=== PATIENT | female | born 1980 | race Caucasian/White ===

== ENCOUNTER 2022-05-16 17:27 | Emergency (ER) | payer OTHER, SELFPAY ==
[2022-05-16] VITALS (12 sets, daily range): BP systolic 107–116; BP diastolic 70–81; PULSE 75–97; RESP 16–18; TEMP 37.7; O2SAT 94–98; BMI 30.9
[2022-05-16 17:55] LABS: Appearance Urine Clear (Clear); Bilirubin Urine Negative (Negative); Blood Urine Negative (Negative); Color Urine Yellow (Yellow); Glucose Urine Negative (Negative); Ketones Urine Negative (Negative); Leukocyte Esterase Urine Negative (Negative); Nitrite Urine Negative (Negative); Protein Urine Negative (Negative); Specific Gravity Urine 1.025 (1.000-1.030); Urobilinogen Urine 0.2 (0.2-1.0); pH Urine 6.5 (5.0-8.5)
--- NOTE | 2022-05-16 18:00 | CRLHL7_ITS ---
For Patients: As a result of the Cures Act, medical imaging exams and procedure reports are released immediately into your electronic medical record. You may view this report before your referring provider. If you have questions, please contact your health care provider. HISTORY: Right lower quadrant pain. History of hysterectomy. TECHNIQUE: CT abdomen and pelvis without IV contrast. 72 mL Isovue 370 IV. COMPARISON: None. FINDINGS: Abdomen: Few 1 cm cysts in the liver. Mild central intrahepatic bile duct dilation. No extrahepatic bile duct dilation. Pancreas is unremarkable. 1.4 cm hypodense lesion in the superior aspect the spleen measures slightly above water density. There is an adjacent subcentimeter hypodense lesion in the superior aspect of the spleen. No adrenal nodules. Kidneys enhance symmetrically. Subcentimeter hypodense lesion in the lower pole the right kidney is too small to characterize but is likely a cyst. No hydronephrosis. No dilated bowel. Colonic diverticulosis. Appendix is unremarkable. No free fluid. No lymphadenopathy. Abdominal aorta is normal caliber. Pelvis: No lymphadenopathy. Musculoskeletal: Convex right curvature of the thoracolumbar spine. Lower chest: Unremarkable. IMPRESSION: 1. Mild intrahepatic bile duct dilatation without extrahepatic bile duct dilation. Correlate with clinical and laboratory findings of biliary obstruction. 2. 1.4 cm and subcentimeter indeterminate hypodense lesions in the spleen. In the absence of a history of malignancy recommend follow-up contrast enhanced CT in 6 months. If there is a history of malignancy metastases should be considered. 3. Colonic diverticulosis. Please note that all CT scans at this facility use dose modulation, iterative reconstruction, and/or weight-based dosing when appropriate to reduce radiation dose to as low as reasonably achievable. Dictated by Jakob Tavera MD @ 05/16/2022 7:46:02 PM (Electronically Signed)
--- NOTE | 2022-05-16 18:02 | ED.ABDPAIN ---
HPI - Abdominal Pain General Chief Complaint: Abdominal Pain Stated Complaint: sharp pain in lower l. ab Time Seen by Provider: 05/16/22 17:37 History of Present Illness HPI narrative: This 41-year-old female comes in reporting pain in the right lower quadrant that began about 3 hours or 4 hours prior to arrival. She states that it is a constant pain and has been worsening since it started. The pain is worse when there is movement and when going over the bumps in the car ride here. She does not report any nausea, vomiting, fever, or dysuria. She does arrive with a temperature at 99.8?. She is otherwise in good health. She states that she did have a gallbladder attack about a year ago and there was a stone with some sludge in her gallbladder. She did not have her gallbladder removed and has not had any subsequent symptoms. She states that this pain is quite different from what she had a year ago. Related Data Home Medications Medication Instructions Recorded Confirmed sertraline 50 mg tablet (Zoloft) 50 mg PO DAILY 05/16/22 05/16/22 Previous Rx's Medication Instructions Recorded ketorolac 10 mg tablet 10 mg PO Q8H 5 days #15 tabs 05/16/22 ondansetron HCl 4 mg tablet 4 mg PO Q6H #10 tabs 05/16/22 Allergies Allergy/AdvReac Type Severity Reaction Status Date / Time No Known Drug Allergies Allergy Verified 05/16/22 17:43 Review of Systems Status of ROS Reports: 10 or more systems reviewed and unremarkable except as noted in History and below Narrative Constitutional: No fevers, no weight gain or loss. Eyes: No discharge. No vision changes. HENT: No congestion, no sore throat, no ear pain. Cardiovascular: No chest pain, no palpitations. Respiratory: No shortness of breath, no wheezes, no cough. Gastrointestinal: No vomiting, no diarrhea. Abdominal pain as described above. Genitourinary: No dysuria, no hematuria. Musculoskeletal: Normal range of motion. Skin: No rashes, no pruritis. Neurological: No dizziness, weakness, sensory change, speech change. Endo/Heme/Allergies: No bruising or bleeding. No polydipsia. Pysch: no suicidality, no anxiety, no insomnia. All other systems reviewed and are negative. PFSH PFSH Social History Smoking Status: Never smoker How often do you have a drink containing alcohol: 2-4 times a month AUDIT-C Alcohol total score: 2 Non-prescribed substance use: denies use Exam Narrative: Exam Narrative: Constitutional: Well-developed, well-nourished, no acute distress. HEENT: Normocephalic, atraumatic. Neck: Normal range of motion. Nontender. Supple. Heart: Regular. No murmurs. Normal rate. Intact distal pulses. Lungs: Clear to auscultation. No chest discomfort. No wheezes, rhonchi, or rales. Abdomen: Decreased bowel sounds. Tenderness in the right lower quadrant at McBurney's point. No obvious rebound tenderness. Genitalia: Deferred. Back: No midline tenderness. Normal range of motion. Extremities: Normal range of motion. No injury. Skin: Intact. No rash. Warm. No erythema or pallor. Neurologic: No altered sensation. No weakness. Alert and oriented. Psychiatric: No suicidality. No anxiety or depression. No insomnia. Nursing notes and vitals signs are reviewed. Const: Vital Signs, click to edit/add: Vital Signs - 24 hr 05/16/22 17:38 05/16/22 18:26 05/16/22 18:31 Temperature 99.8 F H Pulse Rate Pulse Rate [Right Pulse Oximeter] 92 90 97 Respiratory Rate 16 18 16 Blood Pressure Blood Pressure [Ri ght Upper Arm] 111/74 111/70 Pulse Oximetry 97 98 98 Oxygen Delivery Me thod Room Air Room Air Room Air 05/16/22 18:42 05/16/22 18:43 Temperature Pulse Rate 82 79 Pulse Rate [Right Pulse Oximeter] Respiratory Rate Blood Pressure 114/81 Blood Pressure [Ri ght Upper Arm] Pulse Oximetry 95 94 Oxygen Delivery Me thod Course Vital Signs Vital signs: Initial Vital Signs Temperature 99.8 F H 05/16/22 17:38 Temperature Source Temporal Artery Scan 05/16/22 17:38 Pulse Rate 92 05/16/22 17:38 Respiratory Rate 16 05/16/22 17:38 Blood Pressure 111/74 05/16/22 17:38 Blood Pressure Mean 86 05/16/22 17:38 Blood Pressure Position Sitting 05/16/22 17:38 Pulse Oximetry 97 05/16/22 17:38 Oxygen Delivery Method 05/16/22 17:38 Vital Signs Temperature 99.8 F H 05/16/22 17:38 Pulse Rate 92 05/16/22 17:38 Respiratory Rate 16 05/16/22 17:38 Blood Pressure 111/74 05/16/22 17:38 Pulse Oximetry 97 05/16/22 17:38 Oxygen Delivery Method 05/16/22 17:38 Temperature 99.8 F H 05/16/22 17:38 Pulse Rate 79 05/16/22 18:43 Respiratory Rate 16 05/16/22 18:31 Blood Pressure 114/81 05/16/22 18:42 Pulse Oximetry 94 05/16/22 18:43 Oxygen Delivery Method 05/16/22 18:31 MDM - Abdominal Pain MDM Narrative Medical decision making narrative: This patient comes in with abdominal pain. She states that it is a constant pain. She was displaying enough symptoms were it seemed proper to do a CT scan with IV contrast. This was obtained and returns with no obvious findings to explain her pain. There are few cysts in her liver and 1 in the spleen and there is some mild dilation of the common bile duct. The patient does state that she has an abnormal gallbladder but has not had any recurrent symptoms related to this. Her lab results today returned with normal findings. Her white count is normal and her liver enzymes and bilirubin also returned in normal range. The patient received an IV dose of Dilaudid 0.5 mg and Zofran 4 mg and this brought sufficient relief to her symptoms. She is okay to be discharged home and received prescriptions for Zofran and Toradol. I describe signs and symptoms that would indicate a need for return and re-evaluation. Lab Data Labs: Lab Results 05/16/22 05/16/22 05/16/22 Range/Units 17:50 18:10 18:10 WBC 9.62 (4.50-11.00) K/uL RBC 5.10 (4.00-5.20) m/uL Hgb 14.7 (12.0-16.0) gm/dL Hct 44.2 (33.0-51.0) % MCV 87 (80-100) fL MCH 29 (26-34) pg MCHC 33 (32-36) gm/dL RDW Coeff of Girish 13.1 (11.5-15.5) % Plt Count 341 (140-440) K/uL Neut % (Auto) 67.4 (42.0-72.0) % Lymph % (Auto) 19.2 L (20-44) % [place] % (Auto) 11.2 H (0.0-11.0) % Eos % (Auto) 1.7 (0.0-7.0) % Baso % (Auto) 0.3 (0.0-3.0) % Neut # (Auto) 6.48 (1.7-7.0) K/uL Lymph # (Auto) 1.80 (0.90-2.90) K/uL [place] # (Auto) 1.10 H (0.00-0.90) K/UL Eos # (Auto) 0.16 (0.00-0.50) K/uL Baso # (Auto) 0.03 (0.00-0.30) K/uL Sodium 139 (135-149) mmol/L Potassium 4.0 (3.6-5.1) mmol/L Chloride 107 (96-114) mmol/L Carbon Dioxide 27 (20-32) mmol/L BUN 20 (5-24) mg/dL Creatinine 0.5 (0.5-1.5) mg/dL Estimated Creat Clear 160.09 Estimated GFR 122 ml/min Glucose 93 (60-115) mg/dL Calcium 9.2 (8.4-10.6) mg/dL Total Bilirubin 0.4 (0.1-1.5) mg/dL Direct Bilirubin 0.2 (0.0-0.5) mg/dL AST 19 (12-35) U/L ALT 19 (4-35) U/L Alkaline Phosphatase 72 (40-150) U/L Total Protein 7.5 (6.0-8.3) g/dL Albumin 4.2 (3.3-5.0) g/dL Urine Color Yellow (Yellow) Urine Appearance Clear (Clear) Urine pH 6.5 (5.0-8.5) Ur Specific Dubois 1.025 (1.000-1.030) Urine Protein Negative (Negative) Urine Glucose (UA) Negative (Negative) Urine Ketones Negative (Negative) Urine Blood Negative (Negative) Urine Nitrite Negative (Negative) Urine Bilirubin Negative (Negative) Urine Urobilinogen 0.2 (0.2-1.0) Ur Leukocyte Esterase Negative (Negative) Urine RBC 0-2 (0-2) Urine WBC 0-2 (0-5) Ur Squamous Epith Cells Few (None-Few) Urine Bacteria None (None) Imaging Data CT scan - abdomen: Radiologist's impression: 1. Mild intrahepatic bile duct dilatation without extrahepatic bile duct dilation. Correlate with clinical and laboratory findings of biliary obstruction. 2. 1.4 cm and subcentimeter indeterminate hypodense lesions in the spleen. In the absence of a history of malignancy recommend follow-up contrast enhanced CT in 6 months. If there is a history of malignancy metastases should be considered. 3. Colonic diverticulosis. Discharge Plan Discharge Clinical Impression: Gastroenteritis Patient Disposition: Home, Self-Care Condition: Improved Additional Instructions: Take medication as needed and indicated. Follow up with MD or return if worsening. Prescriptions: New ondansetron HCl 4 mg tablet 4 mg PO Q6H Qty: 10 0RF ketorolac 10 mg tablet 10 mg PO Q8H 5 Days Qty: 15 0RF No Action sertraline [Zoloft] 50 mg tablet 50 mg PO DAILY Follow Up/Referrals: Provider,Not a Local [Primary Care Provider] - Stand Alone Forms: [facility] Info Instructions
[2022-05-16] MEDS: ONDANSETRON 2 MG/ML inj 4 MG IVP (18:15)
[2022-05-16] MEDS: HYDROmorphone 0.5 mg/0.5 ml inj IVP (18:15)
[2022-05-16 18:16] LABS: Basophils Percent Auto 0.3 % (0.0-3.0); Eosinophils Percent Auto 1.7 % (0.0-7.0); Hematocrit 44.2 % (33.0-51.0); Hemoglobin* 14.7 gm/dL (12.0-16.0); Immature Granulocytes Pct Auto 0.2 %; Lymphocytes Percent Auto 19.2 % (20-44); Mean Corpuscular HGB Conc 33 gm/dL (32-36); Mean Corpuscular Hemoglobin 29 pg (26-34); Mean Corpuscular Volume 87 fL (80-100); Monocytes Percent Auto 11.2 % (0.0-11.0); Neutrophils Percent Auto 67.4 % (42.0-72.0); Platelet Count* 341 K/uL (140-440); RDW Coefficient of Variation % 13.1 % (11.5-15.5); White Blood Count* 9.62 K/uL (4.50-11.00)
[2022-05-16 18:16] LABS: RBC Urine 0-2 (0-2); Squamous Epithelial Cell Urine Few (None-Few); WBC Urine 0-2 (0-5)
[2022-05-16 18:17] LABS: Basophils Absolute Auto 0.03 K/uL (0.00-0.30); Eosinophils Absolute Auto 0.16 K/uL (0.00-0.50); Immature Granulocytes Abs Auto 0.02 K/uL (0.00-0.30); Neutrophils Absolute Auto 6.48 K/uL (1.7-7.0)
[2022-05-16 18:24] LABS: Slide Review Reflex No
[2022-05-16 18:28] LABS: Chloride* 107 mmol/L (96-114)
[2022-05-16 18:29] LABS: Albumin* 4.2 g/dL (3.3-5.0); Sodium* 139 mmol/L (135-149)
[2022-05-16 18:32] LABS: Alanine Aminotransferase* 19 U/L (4-35); Alkaline Phosphatase* 72 U/L (40-150); Aspartate Amino Transferase* 19 U/L (12-35); Bilirubin Direct* 0.2 mg/dL (0.0-0.5); Bilirubin Total* 0.4 mg/dL (0.1-1.5); Blood Urea Nitrogen* 20 mg/dL (5-24); Calcium* 9.2 mg/dL (8.4-10.6); Carbon Dioxide* 27 mmol/L (20-32); Creatinine* 0.5 mg/dL (0.5-1.5); Est. Creatinine Clearance* 160.09; Estimated Glomerular Filt Rate 122 ml/min; Glucose* 93 mg/dL (60-115); Total Protein* 7.5 g/dL (6.0-8.3)
--- OUTSIDE RECORDS SUMMARY | 2022-05-16 19:02 | XMS_ITS ---
:1980 Author Name Janessa Haskins Care Team Providers Name Role Phone Janessa Haskins Unavailable Unavailable PROBLEMS Type Condition ICD9-CM Code [id number] Code Onset Condition SNO MED Code Dates Status Problem Menopausal and N95.1 Active female climacteric states Problem H/O vitamin D Z86.39 Active 075159 06 deficiency Problem Chronic fatigue R53.82 Active 5270 2003 Problem Female climacteric N95.1 Active 1 20118657 state Problem Premenopausal N95.9 Active 901346 000 patient Problem Vitamin D E55.9 Active 20351924 deficiency ALLERGIES No Known Allergies ENCOUNTERS Encounter Location Date Diagnosis [facility] [address] [place], [place] and female [place], [place] climacteric sta yulia N95.1 ; [address] Fatigue R53.83 ; Premenopausal pa tient N95.9 and Vitami n D deficiency E55.9 [facility] [address] [place], [place] [address] [facility] [address] Mar, Fatigue R53 .83 ; [place], [place] Menopausal and f emale [address] climacteric stat es N95.1 and H/O vitamin D deficiency Z86.3 9 [facility] [address] Mar, [place] [address] [facility] [address] [place], [place] [address] [facility] [address], [place] [address] [facility] [address] Mar, [place] [address] [facility] [address] Feb, [place] [address] [facility] [address] Feb, Premeno pausal patient [place], [place] N95.9 ; Vitamin D [address] deficiency E55.9 and Chronic fatigue R53.82 [facility] [address] Jan, Menopausal and female [place], [place] climacteric stat es N95.1 [address] [facility] [address] Dec, Premeno pausal patient [place], [place] N95.9 ; Vitamin D [address] deficiency E55.9 and Chronic fatigue R53.82 [facility] [address] Dec, [place], [place] [id number] [facility] [address] Nov, [place], [place] [id number] [facility] [address] Nov, Premeno pausal patient [place], [place] N95.9 ; Female climacteric [address] N95.1 ; Vitamin D deficiency E55.9 and Breast cancer sc reening by mammogram Z12.31 [facility] [address] Nov, Fatigue R53 .83 ; [place], [place] Menopausal and f emale [address] climacteric stat es N95.1 ; Thyroid disorder screen Z13.29 and Encou nter for special screenin g examination for nutritional diso rder Z13.21 [facility] [address] Nov, [place] [address] [facility] [address] Nov, Female climacteric state [place], [place] N95.1 ; [place] [address] patient N95.9 an d Chronic fatigue R53.82 IMMUNIZATIONS No Known Immunizations SOCIAL HISTORY Qualifiers Date Never Smoker REASON FOR REFERRAL Reason Marilyn Castro (Mammo) Schedu led 12/29 Referral Organization [facility] Referring Provider First Name Luca Referring Provider Last Name Philipbari Referring Provider Specialty Nurse Practitioner Referring Provider Referring Provider email [email or web address] Referred Provider Specialty Mammography Screening Cent er Referral Appointment Date 2021-12-29 FUNCTIONAL STATUS PLAN OF CARE Activity Details Follow Up 3 Months Reason: Future Appointment Provider Name:Luca Haynes, 2022-06-22 08:30:00 AM, [address] [employer], [place], [address], Future Appointment Provider Name:Luca Haynes, 2022-06-30 08:30:00 AM, [address] [employer], [place], [address], Referral 2021-12-29, Marilyn Castro (Sara ammo) Scheduled 12/29 Pending Test VITAMIN D,25-OH,TOTAL,IA VITAL SIGNS Height 58 in 2022-03-25 Weight 159.6 lbs 2022-03-25 BMI 33.35 kg/m2 2022-03-25 Blood pressure systolic 122 mm Hg 2022-03-25 Blood pressure diastolic 70 mm Hg 2022-03-25 MEDICATIONS Medication Instructions Dosage Frequency Start Date End Date Duration S tatus Zoloft Active Vitamin D3 50,000 Orally weekly 1 capsule Nov, day s Active 2021 Estrogen Pellets Active Testosterone Active Pellets PROCEDURES Procedure Date Ordered Result Body Site Self pay no charge visit Mar 25, 2022 GONADOTROPIN (FSH) Mar 16, 2022 ASSAY OF PROLACTIN Dec 02, 2021 BRIEF EMOTIONAL/BEHAV ASSMT Dec 02, 2021 ASSAY OF SEX HORMONE GLOBUL Dec 02, 2021 VITAMIN B-12 Dec 02, 2021 ASSAY OF TOTAL TESTOSTERONE Dec 02, 2021 Self pay no charge visit Dec 30, 2021 ASSAY OF TOTAL TESTOSTERONE Mar 18, 2022 DEHYDROEPIANDROSTERONE Dec 02, 2021 ASSAY OF TOTAL TESTOSTERONE Jan 27, 2022 ASSAY OF TOTAL TESTOSTERONE Mar 16, 2022 ASSAY OF ESTRADIOL Dec 02, 2021 ASSAY OF ESTRADIOL Mar 16, 2022 GONADOTROPIN (FSH) Mar 18, 2022 GONADOTROPIN (FSH) Dec 02, 2021 ASSAY OF ESTRADIOL Mar 18, 2022 ASSAY OF VITAMIN D Dec 02, 2021 GONADOTROPIN (LH) Dec 02, 2021 ASSAY OF VITAMIN D Mar 16, 2022 ASSAY OF VITAMIN D Mar 18, 2022 ASSAY OF TESTOSTERONE Dec 02, 2021 ASSAY THYROID STIM HORMONE Dec 02, 2021 TOTAL CORTISOL Dec 02, 2021 RESULTS Name Result Date Reference Range ESTRADIOL 2022-03-18 ESTRADIOL 47 FSH 2022-03-18 FSH 5.2 TESTOSTERONE, TOTAL, LC/MS/MS 2022-03-18 TESTOSTERONE, TOTAL, MS 134 2-45 TESTOSTERONE, TOTAL, LC/MS/MS 2022-01-27 TESTOSTERONE, TOTAL, MS 229 2-45 ESTRADIOL 2021-12-02 ESTRADIOL 102 DHEA SULFATE 2021-12-02 DHEA SULFATE 86 19-237 VITAMIN B12 2021-12-02 VITAMIN B12 812 060-3479 FSH 2021-12-02 FSH 5.1 LH 2021-12-02 LH 3.5 PROLACTIN 2021-12-02 PROLACTIN 5.4 CORTISOL, TOTAL 2021-12-02 CORTISOL, TOTAL 13.4 TSH 2021-12-02 TSH 1.98 VITAMIN D,25-OH,TOTAL,IA 2021-12-02 VITAMIN D,25-OH,TOTAL,IA 20 30-100 SEX HORMONE BINDING GLOBULIN 2021-12-02 SEX HORMONE BINDING GLOBULIN 56 17- 124 TESTOSTERONE, TOTAL, LC/MS/MS 2021-12-02 TESTOSTERONE, TOTAL, MS 13 2-45 TESTOSTERONE, FREE 2021-12-02 TESTOSTERONE, FREE 1.4 0.2-5.0 REASON FOR VISIT Insurance Providers [facility] [facility] Health Member Patient Patient Patient Patient Patient Subscriber Subscriber Subscriber Group Insurance Plan Plan Plan Plan ID Relationship Address Phone Name Date of ID Name Date of No Type Insurance Insurance Insurance Coverage to Subscriber Address Phone Name Dates HealthPart [address] HealthPart self [place] [id number] [facility] [place] [id number] MEDICAL (GENERAL) HISTORY Type Description Date Medical History asthma Medical History anxiety Medical History uterine fibroids Surgical History section Surgical History hysterectomy with bilateral tubal (ovari es 2020 retained) Hospitalization History viral meningitis 10/2021
--- OUTSIDE RECORDS SUMMARY | 2022-05-16 19:02 | XMS_ITS ---
:1980 Author Name Janessa Haskins Care Team Providers Name Role Phone Janessa Haskins Unavailable Unavailable PROBLEMS Type Condition ICD9-CM Code FCP33-QA Code Onset Condition SNO MED Code Dates Status Problem Menopausal and N95.1 Active female climacteric states Problem H/O vitamin D Z86.39 Active 952857 06 deficiency Problem Chronic fatigue R53.82 Active 5270 2003 Problem Female climacteric N95.1 Active 1 53620262 state Problem Premenopausal N95.9 Active 218814 000 patient Problem Vitamin D E55.9 Active 49097751 deficiency ALLERGIES No Known Allergies ENCOUNTERS Encounter Location Date Diagnosis [facility] [address] [place], [place] and [place], [place] climacteric sta yulia N95.1 ; [address] Fatigue R53.83 ; Premenopausal pa tient N95.9 and Vitami n D deficiency E55.9 [facility] [address] [place], [place] [address] [facility] [address] Mar, Fatigue R53 .83 ; [place], [place] Menopausal and f emale [address] climacteric stat es N95.1 and H/O vitamin D deficiency Z86.3 9 [facility] [address] Mar, [place] [address] [facility] [address] Mar, [place] [address] [facility] [address] Mar, [place] [address] [facility] [address] Mar, [place] [address] [facility] [address] Feb, [place] [address] [facility] [address] Feb, Premeno pausal patient [place], [place] N95.9 ; Vitamin D [address] deficiency E55.9 and Chronic fatigue R53.82 [facility] [address] Jan, Menopausal and female [place], [place] climacteric stat es N95.1 [address] [facility] [address] Dec, Prem[place] pausal patient [place], [place] N95.9 ; Vitamin D [address] deficiency E55.9 and Chronic fatigue R53.82 [facility] [address] Dec, [place], [place] [id number] [facility] [address] Nov, [place], [place] [id number] [facility] [address] Nov, Premeno pausal patient [place], [place] N95.9 ; Female climacteric [address] N95.1 ; Vitamin D deficiency E55.9 and Breast cancer sc reening by mammogram Z12.31 [facility] [address] Nov, Fatigue R53 .83 ; [place], [place] Menopausal and f emale [address] climacteric stat es N95.1 ; Thyroid disorder screen Z13.29 and Encou nter for special screenin g examination for nutritional diso rder Z13.21 [facility] [address] Nov, [place] [address] [facility] [address] Nov, Female climacteric state [place], [place] N95.1 ; [place] [address] patient N95.9 an d Chronic fatigue R53.82 IMMUNIZATIONS No Known Immunizations SOCIAL HISTORY Qualifiers Date Never Smoker REASON FOR REFERRAL Reason Marilyn Castro (Mammo) Schedu led 12/29 Referral Organization [facility] Referring Provider First Name uLca Referring Provider Last Name Philipbari Referring Provider Specialty Nurse Practitioner Referring Provider Referring Provider email [email or web address] Referred Provider Specialty Mammography Screening Cent er Referral Appointment Date 2021-12-29 FUNCTIONAL STATUS PLAN OF CARE Activity Details Follow Up 3 Months Reason: Future Appointment Provider Name:Luca Haynes, 2022-06-22 08:30:00 AM, [address] [employer], [place], [address], Future Appointment Provider Name:Luca Haynes, 2022-06-30 08:30:00 AM, [address] [employer], [place], [address], Referral 2021-12-29, Marilyn Castro (Sara ammo) Scheduled [...] PROCEDURES Procedure Date Ordered Result Body Site VITAMIN B-12 Dec 02, 2021 BRIEF EMOTIONAL/BEHAV ASSMT Dec 02, 2021 GONADOTROPIN (FSH) Mar 16, 2022 ASSAY OF PROLACTIN Dec 02, 2021 Self pay no charge visit Mar 25, 2022 GONADOTROPIN (FSH) Mar 18, 2022 ASSAY OF SEX HORMONE GLOBUL Dec 02, 2021 ASSAY OF ESTRADIOL Mar 18, 2022 ASSAY OF TOTAL TESTOSTERONE Dec 02, 2021 ASSAY OF ESTRADIOL Mar 16, 2022 ASSAY OF TOTAL TESTOSTERONE Mar 18, 2022 DEHYDROEPIANDROSTERONE Dec 02, 2021 ASSAY OF TOTAL TESTOSTERONE Jan 27, 2022 ASSAY OF TOTAL TESTOSTERONE Mar 16, 2022 ASSAY OF ESTRADIOL Dec 02, 2021 Self pay no charge visit Dec 30, 2021 GONADOTROPIN (FSH) Dec 02, 2021 ASSAY OF VITAMIN D Dec 02, 2021 GONADOTROPIN (LH) Dec 02, 2021 ASSAY OF TESTOSTERONE Dec 02, 2021 ASSAY OF VITAMIN D Mar 16, 2022 ASSAY OF VITAMIN D Mar 18, 2022 ASSAY THYROID STIM HORMONE Dec 02, 2021 TOTAL CORTISOL Dec 02, 2021 RESULTS Name Result Date Reference Range ESTRADIOL 2022-03-18 ESTRADIOL 47 FSH 2022-03-18 FSH 5.2 TESTOSTERONE, TOTAL, LC/MS/MS 2022-03-18 TESTOSTERONE, TOTAL, MS 134 2-45 TESTOSTERONE, TOTAL, LC/MS/MS 2022-01-27 TESTOSTERONE, TOTAL, MS 229 2-45 ESTRADIOL 2021-12-02 ESTRADIOL 102 DHEA SULFATE 2021-12-02 DHEA SULFATE 86 19-237 VITAMIN B12 2021-12-02 VITAMIN B12 280 106-9293 FSH 2021-12-02 FSH 5.1 LH 2021-12-02 LH 3.5 PROLACTIN 2021-12-02 PROLACTIN 5.4 CORTISOL, TOTAL 2021-12-02 CORTISOL, TOTAL 13.4 TSH 2021-12-02 TSH 1.98 VITAMIN D,25-OH,TOTAL,IA 2021-12-02 VITAMIN D,25-OH,TOTAL,IA 20 30-100 SEX HORMONE BINDING GLOBULIN 2021-12-02 SEX HORMONE BINDING GLOBULIN 56 17- 124 TESTOSTERONE, TOTAL, LC/MS/MS 2021-12-02 TESTOSTERONE, TOTAL, MS 13 2-45 TESTOSTERONE, FREE 2021-12-02 TESTOSTERONE, FREE 1.4 0.2-5.0 REASON FOR VISIT Insurance Providers [facility] Health Member Patient Patient Patient Patient Patient Subscriber Subscriber Subscriber Group Insurance Plan Plan Plan Plan ID Relationship Address Phone Name Date of ID Name Date of No Type Insurance Insurance Insurance Coverage to Subscriber Address Phone Name Dates HealthPart [address] HealthPart self [place] [id number] [facility] [place] [id number] MEDICAL (GENERAL) HISTORY Type Description Date Medical History asthma Medical History anxiety Medical History uterine fibroids Surgical History section Surgical History hysterectomy with bilateral tubal (ovari es 2020 retained) Hospitalization History viral meningitis 10/2021
== END 2022-05-16 20:10 | disposition home or self-care (01) ==
PROVIDERS: Emergency Provider Emergency Medicine Emergency Medical Services
DX: K52.9 Noninfective gastroenteritis and colitis, unspecified (principal)
CPT/HCPCS: 36415; 74177; 80048; 80076; 81001; 85025; 94761; 96374; 96375; 99284; 99285; J1170; J2405; Q9967